=== PATIENT | male | born 1930 | race Caucasian/White ===

== ENCOUNTER 2016-09-21 09:31 | Inpatient (IN) | payer OTHER ==
[~2016-09-21] VITALS: Ht 172.7 cm; Wt 74.8 kg
[~2016-09-21 09:31] MED LIST: AMIODARONE HYD200 M1 PO; AMIODARONE HYD200 MG PO; AMLODIPINE BESYL5 M1 PO; ASPIRIN81 MG PO; CARDURA4 MG PO; CIPRO500 MG PO; COZAAR100 MG PO; GABAPENTIN100 M1 PO; GABAPENTIN100 M2 PO; HYD25 PO; LIPI10 PO; LOSARTAN POTAS100 MG PO; OMEPRAZOLE D/R20 M1 PO; POTASSIUM20 MEQ PO; PRI20 PO; SIMVASTATIN40 MG PO; TOPROL XL25 MG PO; ZESTRIL40 MG PO; ZOC20 PO
[2016-09-21] MEDS ORDERED: NITROSTAT0.4 MG SL (10:17)
[2016-09-21 10:26] LABS: BASOPHIL % 0.4 % (0-2); PLATELET COUNT 172 x10^3mcL (130-400); RED CELL DISTRIBUTION WIDTH 14.4 % (11.5-14.5)
[2016-09-21 10:28] LABS: CALCIUM 8.8 mg/dL (8.5-10.1); CARBON DIOXIDE 30.3 mmol/L (21-32); CHLORIDE SERUM 107 mmol/L (98-107); CREATININE SERUM 1.1 mg/dL (0.7-1.3); GLUCOSE SERUM 84 mg/dL (74-106); POTASSIUM SERUM 3.6 mmol/L (3.5-5.1); SODIUM SERUM 142 mmol/L (136-145)
[2016-09-21 10:33] LABS: ALBUMIN 3.4 g/dL (3.4-5.0); ALKALINE PHOSPHATASE 75 U/L (46-116); ALT/SGPT 17 U/L (16-63); AST/SGOT 20 U/L (15-37); TOTAL PROTEIN, SERUM 6.2 g/dL (6.4-8.2)
[2016-09-21 13:11] VITALS: BP 169/81
[2016-09-21 13:20] VITALS: BP 169/81
[2016-09-21 13:39] LABS: CHOLESTEROL/HDL RATIO 3.2; MAGNESIUM 2.3 mg/dL (1.8-2.4); PHOSPHOROUS 2.8 mg/dL (2.5-4.9); T3 TOTAL 0.83 ng/mL
[2016-09-21 13:47] LABS: FREE T4 1.05 ng/dL (0.76-1.46); FREE THYROXINE INDEX 2.2 ug/dL (1.4-4.5); T4(THYROXINE) 6.6 ug/dL (4.7-13.3)
[2016-09-21 13:50] VITALS: BP 156/71
[2016-09-21 14:49] LABS: microscopic required? NO
[2016-09-21 15:21] LABS: urine erythrocyte NEGATIVE (NEGATIVE)
[2016-09-21 15:30] LABS: AMPHETAMINE QUAL UR NONE DETECTED (NEG <=1000)
[2016-09-21 19:08] VITALS: BP 131/53
[2016-09-21 21:26] VITALS: BP 155/73
[2016-09-22 05:32] VITALS: BP 1257/66
[2016-09-22 06:25] LABS: CALCIUM 8.6 mg/dL (8.5-10.1); CARBON DIOXIDE 30.2 mmol/L (21-32); CHLORIDE SERUM 108 mmol/L (98-107); GLUCOSE SERUM 89 mg/dL (74-106); SODIUM SERUM 142 mmol/L (136-145)
[2016-09-22 06:26] LABS: ALBUMIN 3.3 g/dL (3.4-5.0)
[2016-09-22 08:31] LABS: BASOPHIL % 0.4 % (0-2); PLATELET COUNT 170 x10^3mcL (130-400)
[2016-09-22 08:34] LABS: RED CELL DISTRIBUTION WIDTH 15.1 % (11.5-14.5)
[2016-09-22 09:00] VITALS: BP 150/65
[2016-09-22 12:47] VITALS: BP 158/74
[2016-09-22] MEDS ORDERED: PROSCAR5 MG PO (16:58)
[2016-09-22 17:02] VITALS: BP 154/74
[2016-09-22 22:34] VITALS: BP 159/67
[2016-09-23 06:19] VITALS: BP 156/71
[2016-09-23 06:36] LABS: CALCIUM 8.8 mg/dL (8.5-10.1); CARBON DIOXIDE 30.6 mmol/L (21-32); CHLORIDE SERUM 106 mmol/L (98-107); CREATININE SERUM 1.1 mg/dL (0.7-1.3); GLUCOSE SERUM 87 mg/dL (74-106); SODIUM SERUM 142 mmol/L (136-145)
[2016-09-23 06:38] LABS: BASOPHIL % 0.2 % (0-2); PLATELET COUNT 173 x10^3mcL (130-400); RED CELL DISTRIBUTION WIDTH 14.3 % (11.5-14.5)
[2016-09-23 06:43] LABS: ALBUMIN 3.3 g/dL (3.4-5.0)
[2016-09-23 10:22] VITALS: BP 149/67
[2016-09-23] MEDS ORDERED: ROBITUSSIN W/CODEINE PO (17:13)
[2016-09-23 17:34] VITALS: BP 149/67
[2016-09-23 18:13] VITALS: BP 146/45
== END 2016-09-23 18:25 | disposition home or self-care (01) | DRG 392 ==
LOC: ED 09:31 → DU 11:47 → MU 11:47 → DU 13:04 → MU 09-22 21:20
PROVIDERS: Emergency Medicine; ADMIT Family Medicine
DX: K21.9 Gastro-esophageal reflux disease without esophagitis (principal); E44.0 Moderate protein-calorie malnutrition; R00.1 Bradycardia, unspecified; J06.9 Acute upper respiratory infection, unspecified; I10 Essential (primary) hypertension; E78.5 Hyperlipidemia, unspecified; E87.8 Other disorders of electrolyte and fluid balance, not elsewhere classified; Z79.82 Long term (current) use of aspirin; Z95.1 Presence of aortocoronary bypass graft; I25.10 Atherosclerotic heart disease of native coronary artery without angina pectoris; N40.0 Benign prostatic hyperplasia without lower urinary tract symptoms
CPT/HCPCS: 80307; 83880; 84439; J2270; J7030

== ENCOUNTER 2018-06-12 10:21 | Emergency (ER) | payer OTHER ==
[~2018-06-12] VITALS: Ht 167.6 cm; Wt 70.8 kg
[~2018-06-12 10:21] MED LIST changes: +NITROSTAT0.4 MG SL; +PROSCAR5 MG PO; +ROBITUSSIN W/CODEINE PO
[2018-06-12 10:37] VITALS: Ht 167.6 cm; Wt 70.8 kg
[2018-06-12 11:40] LABS: BASOPHIL % 0.7 % (0-2); PLATELET COUNT 157 x10^3mcL (130-400); RED CELL DISTRIBUTION WIDTH 14.3 % (11.5-14.5)
[2018-06-12 11:51] LABS: CALCIUM 8.6 mg/dL (8.5-10.1); CARBON DIOXIDE 26.9 mmol/L (21-32); CHLORIDE SERUM 106 mmol/L (98-107); CREATININE SERUM 1.2 mg/dL (0.7-1.3); GLUCOSE SERUM 89 mg/dL (74-106); POTASSIUM SERUM 3.4 mmol/L (3.5-5.1); SODIUM SERUM 141 mmol/L (136-145)
[2018-06-12 11:57] LABS: ALBUMIN 3.2 g/dL (3.4-5.0); ALKALINE PHOSPHATASE 93 U/L (46-116); ALT/SGPT 21 U/L (16-63); AST/SGOT 16 U/L (15-37); BILIRUBIN TOTAL 0.4 mg/dL (0.20-1.00); TOTAL PROTEIN, SERUM 6.5 g/dL (6.4-8.2)
[2018-06-12 12:34] LABS: microscopic required? NO
[2018-06-12 12:43] LABS: UA SPECIFIC GRAVITY <=1.005 (1.005-1.035); urine erythrocyte NEGATIVE (NEGATIVE)
[2018-06-12 14:15] VITALS: BP 138/70
== END 2018-06-12 14:15 | disposition home or self-care (01) ==
LOC: ED 10:21
PROVIDERS: Emergency Medicine
DX: J06.9 Acute upper respiratory infection, unspecified (principal); I10 Essential (primary) hypertension; E78.00 Pure hypercholesterolemia, unspecified; I25.2 Old myocardial infarction
CPT/HCPCS: 36415; 87804; J7030; Q0092

== ENCOUNTER 2018-10-04 15:25 | Inpatient (IN) | payer OTHER ==
[~2018-10-04] VITALS: Ht 172.7 cm; Wt 73.9 kg
--- NOTE | 2018-10-04 15:35 | NUR ---
PT BACK TO LOBBY WAITING ROOM AVAILBILITY.
--- NOTE | 2018-10-04 16:05 | NUR ---
PT BIB DAUGHTER TODAY WITH C/C OF CHEST PAIN AND HEADACHE X APPROXIMATELY 1 WEEK. PT REPORTS PAIN IS NONRADIATING AND DESCRIBES PAIN "PRESSURE AND SHARP." PT DENIES ANY NAUSEA OR DIZZINESS. PT IS AWAKE AND ALERT, RESP E/U, SPEAKING IN CLEAR SENTENCES, NAD NOTED. AWAITING MSE. PT CHANGED INTO GOWN AND PLACED ON MONITOR.
--- NOTE | 2018-10-04 16:57 | NUR ---
MEDICATED ORDERED. PLEASE SEE EMR.
[2018-10-04 17:21] LABS: BASOPHIL % 0.3 % (0-2); PLATELET COUNT 163 x10^3mcL (130-400)
[2018-10-04 17:22] LABS: CALCIUM 8.4 mg/dL (8.5-10.1); CARBON DIOXIDE 27.5 mmol/L (21-32); CHLORIDE SERUM 110 mmol/L (98-107); CREATININE SERUM 1.5 mg/dL (0.7-1.3); GLUCOSE SERUM 116 mg/dL (74-106); POTASSIUM SERUM 3.8 mmol/L (3.5-5.1); SODIUM SERUM 144 mmol/L (136-145)
[2018-10-04 17:26] LABS: ALBUMIN 3.2 g/dL (3.4-5.0); ALKALINE PHOSPHATASE 92 U/L (46-116); ALT/SGPT 21 U/L (16-63); AST/SGOT 21 U/L (15-37); BILIRUBIN TOTAL 0.4 mg/dL (0.20-1.00); TOTAL PROTEIN, SERUM 6.2 g/dL (6.4-8.2)
[2018-10-04] MEDS ORDERED: RANEXA500 M2 PO (17:57)
[2018-10-04] MEDS ORDERED: CARDURA2 MG PO (17:57)
--- NOTE | 2018-10-04 18:50 | NUR ---
REPORT GIVEN TO ROLANDA BARNDON TO ASSUME CARE OF PT.
[2018-10-04 18:55] LABS: CHOLESTEROL/HDL RATIO 3.4; MAGNESIUM 2.3 mg/dL (1.8-2.4); PHOSPHOROUS 3.4 mg/dL (2.5-4.9)
[2018-10-04 19:07] LABS: T3 TOTAL 0.78 ng/mL
--- NOTE | 2018-10-04 19:17 | NUR ---
RECEIVED PT FROM [email or web address], CAME IN DUE TO CHEST PAIN X6 DAYS. AAOX4. DENIES HEADACHE/DIZZINESS. ABLE TO FOLLOW COMMANDS. SPEECH IS CLEAR. NO SOB NOTED, LUNG SOUNDS DIMINISHED ON AUSCULTATION. W/ NON-PRODUCTIVE COUGH. STATED THAT HE HAS 2/10 SHARP MID CHEST PAIN, NON-RADIATING. SINUS BRADYCARDIA W/ BBB AND ELEVATED T WAVE. DENIES ABDOMINAL DISCOMFORT. ABDOMEN IS SOFT AND ROUND. VOIDS. IV SITE PATENT AND INTACT. SIDE RAILS UPX2. CALL LIGHT ON REACH. DAUGHTER AT BEDSIDE. ENDORSED TO PRIMARY NURSE NITA FOR CONTINUITY OF CARE
[2018-10-04 19:26] LABS: FREE T4 0.91 ng/dL (0.76-1.46); FREE THYROXINE INDEX 2.5 ug/dL (1.4-4.5); T4(THYROXINE) 6.5 ug/dL (4.7-13.3)
[2018-10-04 19:35] VITALS: BP 170/60
--- NOTE | 2018-10-04 19:40 | NUR ---
RECEIVED PT AT THIS TIME. PT AAOX4 DENIES HEADACHE OR DIZZINESS. TELE #9 SB W/ BBB, ELEVATED T WAVE. PT DENIES CHEST PAIN AT THIS TIME. LUNG SOUNDS DIMINISHED ON 2L/MIN NC, NO SOB NOTED. ABD SOFT AND ROUND, ACTIVE BOWEL SOUNDS DENIES N/V. NO SIGNS OF ACUTE DISTRESS NOTED. CALL BUTTON WITHIN REACH. DAUGHTER AT BEDSIDE. WILL CONTINUE TO MONITOR.
[2018-10-04 19:41] VITALS: Ht 172.7 cm; Wt 73.9 kg
[2018-10-04 21:20] VITALS: BP 171/63
--- NOTE | 2018-10-04 21:25 | NUR ---
PT BP 171/63 HR 53, DR GASCA MADE AWARE, AWAITING NEW ORDER.
[2018-10-05] VITALS: BP 141/58
--- NOTE | 2018-10-05 00:46 | NUR ---
PT RESTING, BREATHING EVEN AND UNLABORED WITH NO SIGNS OF DISTRESS NOTED. IV PATENT AND INFUSING WELL. CALL BUTTON WITHIN REACH. WILL CONTINUE TO MONITOR.
--- NOTE | 2018-10-05 02:00 | NUR ---
DR GASCA MADE AWARE OF RHYTHM CHANGE FROM SB W/ BBB ELEVATED T WAVE TO ST BBB DEPRESSED ST SEGMENT AND ELEVATED T WAVE HR 121. PT DENIES CHEST PAIN OR PRESSURE, BP 141/58 (86) NO SIGNS OF ACUTE DISTRESS. NO NEW ORDERS WILL CONTINUE TO MONITOR.
[2018-10-05 05:23] VITALS: BP 144/68
--- NOTE | 2018-10-05 06:27 | NUR ---
PT SLEPT MOST OF THE NIGHT WITH NO SIGNS OF DISTRESS NOTED. BREATHING EVEN AND UNLABORED NC 2L/MIN WITH NO SOB NOTED. PT DENIES ANY PAIN. IV PATENT, INFUSING WELL. SAFETY PRECAUTIONS IN PLACE. NO ACUTE DISTRESS NOTED. WILL MONITOR AND ENDORSE CARE TO DAY SHIFT RN.
[2018-10-05 07:03] LABS: BASOPHIL % 0.4 % (0-2); PLATELET COUNT 160 x10^3mcL (130-400)
[2018-10-05 07:20] LABS: RED CELL DISTRIBUTION WIDTH 14.9 % (11.5-14.5)
[2018-10-05 07:26] LABS: CARBON DIOXIDE 25.7 mmol/L (21-32); CHLORIDE SERUM 110 mmol/L (98-107); CREATININE SERUM 1.1 mg/dL (0.7-1.3); GLUCOSE SERUM 83 mg/dL (74-106); POTASSIUM SERUM 3.7 mmol/L (3.5-5.1); SODIUM SERUM 142 mmol/L (136-145)
--- NOTE | 2018-10-05 07:32 | NUR ---
PT RESTING, DENEIS ANY PAIN. BREATHING EVEN AND UNLABORED WITH NO SIGNS OF DISTRESS, NC 2L/MIN. IV PATENT, INFUSING WELL. CALL BUTTON WITHIN REACH. ENDORSED CARE TO DAY SHIFT RN, ALL QUESTIONS ADDRESSED.
[2018-10-05 09:19] VITALS: BP 132/51
--- NOTE | 2018-10-05 09:30 | NUR ---
ABLE TO FEED SELF, NOTED FINISHED 100% OF CARDIAC DIET BREAKFAST. DENIES CHEST PAIN. AM SCHEDULED MEDS GIVEN. IVF NS TO LFA INFUSING AT 70ML/HR NO INFILTRATION NOTED. GEN BODY WEAKNESS. URINAL PROVIDED AT BEDSIDE. PER PATCHER PATIENT ABLE TO AMBULATE TO BATHROOM. CALL LIGHT REINSTRUCTED AND PLACED WITHIN EASY REACH, SIDERAILS UP X2.
[2018-10-05 12:27] VITALS: BP 131/56
[2018-10-05 16:28] VITALS: BP 131/56
--- NOTE | 2018-10-05 16:47 | NUR ---
FAMILY AT BEDSIDE MADE AWARE OF DISCHARGE HOME ORDER. STATED WILL GO HOME AFTER DINNER. PATIENT IS NAPPING AT THIS TIME. DISCHARGE INSTRUCTION GIVEN TO PATIENT'S DAUGHTER( SPEAK HUNGARIAN FLUENTLY) AND HIS SPOUSE AT BEDSIDE.
[2018-10-05 17:54] VITALS: BP 134/53
--- NOTE | 2018-10-05 18:26 | NUR ---
IV CATHETER TO LFA REMOVED WITH CATHETER INTACT NO ERYTHEMA OR INFILTRATION NOTED, DSRG APPLIED. TELEMETRY#9 CLEANED AND RETURNED TO [place]. DENIES CHEST PAIN/PRESSURE OR DISCOMFORT AT THIS TIME. BROUGHT VIA WHEELCHAIR BY CHEF BROILER OR FRY ACCOMPANIED BY PATIENT'S DAUGHTER AND TO LOBBY. DISCHARGED HOME WITH STABLE CONDITION.
== END 2018-10-05 18:25 | disposition home or self-care (01) | DRG 205 ==
LOC: ED 15:25 → DU 17:57
PROVIDERS: Emergency Medicine; ADMIT Internal Medicine
DX: M94.0 Chondrocostal junction syndrome [Tietze] (principal); N17.0 Acute kidney failure with tubular necrosis; E44.0 Moderate protein-calorie malnutrition; E83.51 Hypocalcemia; R73.03 Prediabetes; I25.10 Atherosclerotic heart disease of native coronary artery without angina pectoris; I10 Essential (primary) hypertension; E78.5 Hyperlipidemia, unspecified; N40.0 Benign prostatic hyperplasia without lower urinary tract symptoms; I25.2 Old myocardial infarction; Z79.82 Long term (current) use of aspirin; Z68.24 Body mass index [BMI] 24.0-24.9, adult; Z95.1 Presence of aortocoronary bypass graft
CPT/HCPCS: 84439; J0360; J7030; Q0092